=== PATIENT | female | born 1960 | race Caucasian/White ===

== ENCOUNTER 2019-05-22 07:02 | Day surgery (SDC) | payer OTHER ==
[2019-05-12 10:33] VITALS: BMI 44.6
[2019-05-22] MEDS ORDERED: methylPREDNISolone ACET (DEPO) 40 MG/1 ML VIAL ONE (07:20)
[2019-05-22] MEDS ORDERED: EPINEPHrine 1:1,000 1 MG/1 ML - 30ML VIAL (INJECTION) ONE (07:20)
[2019-05-22] MEDS ORDERED: BUPIVACAINE HCL/PF 2.5 MG/ML - 30 ML VIAL IJ ONE (07:20)
[2019-05-22] MEDS ORDERED: fentaNYL CITRATE 250 MCG/5 ML VIAL ONE (07:57)
[2019-05-22] MEDS ORDERED: PROPOFOL 20 ML ONE ×2 (07:57)
[2019-05-22] MEDS ORDERED: SUCCINYLCHOLINE CHLORIDE 200 MG/10 ML SYRINGE ONE ×2 (07:58→09:17)
[2019-05-22] MEDS ORDERED: ROCURONIUM BROMIDE 50 MG/5 ML SYRINGE ONE ×2 (07:58→09:17)
[2019-05-22] MEDS ORDERED: MIDAZOLAM HCL 2 MG/2 ML SINGLE DOSE VIAL ONE (07:58)
[2019-05-22] MEDS ORDERED: DEXAMETHASONE SOD PHOSPHATE 4 MG/1 ML VIAL ONE (08:37)
[2019-05-22] MEDS ORDERED: KETOROLAC TROMETHAMINE 30 MG/1 ML VIAL ONE (08:37)
[2019-05-22] MEDS ORDERED: ceFAZolin SODIUM 1 GM VIAL ONE (08:37)
[2019-05-22] MEDS ORDERED: ONDANSETRON 4 MG/2 ML VIAL ONE (08:37)
[2019-05-22] MEDS ORDERED: LIDOCAINE HCL 2% JELLY (5 ML/TUBE) ONE (08:37)
[2019-05-22] MEDS ORDERED: LIDOCAINE HCL/PF 2% SDV 5ML VIAL ONE (08:37)
[2019-05-22] MEDS ORDERED: NEOSTIGMINE METHYLSULFATE 0.5 MG/ML - 10 ML MDV ONE (09:30)
[2019-05-22] MEDS ORDERED: GLYCOPYRROLATE 0.2 MG/1 ML VIAL ONE (09:32)
--- NOTE | 2019-05-22 09:49 | PN ---
Progress Note (short form) - Note Progress Note: 58F s/p surgical arthroscopy left knee POD #0. -Pain control. -Incentive spirometry. -PT/OT/Rehab if needed. -WBAT LLE. -Crutch training. -Keep dressing clean & dry; remove dressing on Saturday and cover suture sites with water-proof Band-Aid. -Percocet & Naproxen ordered to pharmacy for analgesia. -Discharge home: f/u [facility] [place] [facility] in 1 week; call for appointment: . Esau Bloom MD (Orthopaedic Surgery).
[2019-05-22] MEDS ORDERED: oxyCODONE HCL 5 MG TABLET PO PRN ×2 (09:53)
[2019-05-22] MEDS ORDERED: ONDANSETRON 4 MG/2 ML VIAL IVPUSH PRN (09:53)
[2019-05-22] MEDS ORDERED: PROMETHAZINE HCL 25 MG/1 ML VIAL IVPUSH PRN (09:53)
--- NOTE | 2019-05-22 09:54 | OP ---
Operative Note - Note: Operative Date: 05/22/19 Pre-Operative Diagnosis: Left knee medial meniscus derangement Operation: 1. Surgical arthroscopy left knee. 2. Removal multiple loose bodies left knee Findings: Tourniquet Pressure: 350mmHg Tourniquet Time: 37 minutes Post-Operative Diagnosis: Same as Pre-op Surgeon: Esau Bloom Anesthesiologist/PAINT DIPPER: Faheem Medina Anesthesia: General Specimens Removed: Multiple loose bodies Estimated Blood Loss (mls): 0 Fluid Volume Replaced (mls): 800 (Crystalloid) Operative Report Dictated: Yes
--- NOTE | 2019-05-22 11:12 | OP ---
Date of Operation: 05/22/2019 Surgeon: Esau Bloom MD Nutrition Faculty Member: None Pre-Operative Diagnosis: Left knee lateral meniscus tear Post-Operative Diagnosis: Left knee: 1. Multiple loose bodies left knee 2. Degenerative ACL 3. Synovitis 4. Grade 4 chondromalacia patella 5. Grade 2 chondromalacia medial tibial plateau 6. Grade 2 chondromalacia lateral tibial plateau Surgical Procedure: Left knee: 1. Surgical arthroscopy with removal of loose bodies (44216). 2. Intra-articular (large joint) injection with 10cc 0.25% Marcaine and 2cc depomedrol (40mg/mL). Anesthesia: General, LMA. Position: Supine. Incision: Standard anteromedial & anterolateral knee arthroscopy portals. Tourniquet Pressure: 350mmHg. Tourniquet Time: 37 minutes. Estimated Blood Loss: 0cc. Intravenous Fluid: 750cc crystalloid. Specimens: None. Drains: None. Complications: None. Urine output: None. Bacteriology: None. Transfusions: None. Closure: 3-0 Nylon. Indications: The patient was indicated for a surgical arthroscopy of the left knee with debridement to facilitate improved motion and mobilization, and to prevent complications associated with a sedentary lifestyle. The patient was identified in the holding area by her armband. A long discussion was held with the patient regarding the risks, benefits and alternatives of the above-named procedure. Risks include but are not limited to: pain, bleeding, infection, damage to surrounding structures (including nerves, blood vessels, skin, ligaments, tendons and bone), wound complications, need for further surgery, blood clots, myocardial infarction, pulmonary embolism, anesthesia complications, compartment syndrome, limb loss, limp, loss of function, and . Benefits as mentioned above. Alternatives include no surgery. All questions were answered. The patient and her family understood and agreed to the procedure. Informed consent was obtained, witnessed and verified. The patients correct operative limb - the left lower extremity - was marked, and the patient was taken to the operating room after being seen by the anesthesia and nursing staff. Procedure: The patient was brought into the operating room, placed on the OR table and secured with a safety strap. Consent and the operative site were again verified with the patient and nursing and anesthesia staff. Anesthesia was then administered without complication. 2g IV Ancef were administered. A time out was done led by me, the attending surgeon. The patient was positioned with bony prominences well padded, and a tourniquet was placed proximally on the left thigh and set to 350mmHg. The operative limb was prepped in standard sterile fashion using betadine prep & scrub, wiped off with alcohol, and then DuraPrep applied. The operative limb was then free draped. Time out was again done, the limb was exsanguinated using an Esmarch, the tourniquet was inflated, and the case began. Surface anatomy of the knee was drawn, marking the patella, patellar tendon, and medial & lateral joint lines. With the knee flexed to 45 degrees, a standard anterolateral arthroscopy portal was made using an 11 blade. A blunt trocar was then inserted into the knee at the same angle as the incision. The blunt trocar was then slipped into the suprapatellar pouch as the knee was slowly extended. The trocar was removed through its overlying canula, and the arthroscope was inserted in its place. The fluid inflow, which had already been primed, was then attached to the canula along with the outflow suction tubing. The knee was then insufflated with normal saline solution. The suprapatellar pouch was then inspected with evidence of diffuse synovitis. Multiple loose bodies/chondral fragments were seen. The retro-patellar surface revealed Grade 4 chondromalacia and the trochlear groove appeared healthy. The patellofemoral articulation appeared congruous. Next, the arthroscope was delivered into the medial gutter of the knee as the knee was slowly flexed. Again, multiple loose bodies were seen. With gentle valgus force applied to the knee, the arthroscope was slipped into the medial compartment. The cartilage of the medial femoral condyle and appeared healthy with no chondromalacia. The cartilage of the medial tibial plateau revealed grade 2 chondromalacia. The medial meniscus appeared intact. Next, an 18-gauge spinal needle was used to plan an anteromedial portal. With the correct position and working trajectory verified, the spinal needle was removed, and an 11 blade was utilized to create a standard anteromedial arthroscopy portal. A blunt trocar was then inserted via the anteromedial portal into the medial compartment of the knee under direct arthroscopic visualization via the anterolateral portal. A probe was inserted via the anteromedial portal demonstrating the stability of the medial meniscus, as well as to inspect the superior and inferior surfaces of the medial meniscus. No meniscus derangement was identified. Next, the arthroscope was delivered into the intercondylar notch. The ACL was visualized and appeared hyperemic and degenerative. A motorized 3.5mm shaver was then inserted via the anteromedial portal and redundant, loose flaps of synovial tissue was gently trimmed back to a stable base. Numerous loose bodies were removed via mechanical debridement and suction, as well. The probe was used to demonstrate the ACLs stability. The PCL was not visualized. Gentle varus stress was applied to the knee as the arthroscope was delivered into the lateral compartment of the knee. The cartilage of the lateral femoral condyle and appeared healthy with no chondromalacia. The cartilage of the lateral tibial plateau revealed grade 2 chondromalacia. The lateral meniscus appeared intact. A probe was used to demonstrate the stability of the lateral meniscus, as well as to inspect the superior and inferior surfaces of the lateral meniscus. No meniscus derangement was identified. The arthroscope was then delivered into the lateral gutter of the knee where, again, loose bodies were seen. The arthroscope was then returned to the suprapatellar pouch as the knee was gently extended. The knee was irrigated with 2-3L of normal saline solution and the motorized shaver was used to debride and remove all loose bodies. All fluid was suctioned out of the knee. An intra-articular injection consisting of 10mL of 0.25% Marcaine with 2mL of Depo-Medrol (40 mg/mL) was injected into the knee. Hemostasis was assured, and the incisions were closed primarily using 3-0 nylon sutures. Xeroform and a sterile, compressive dressing was applied. The tourniquet was released at a final time of 37 minutes. The sponge and needle counts were correct at the end of the case and I the attending was present and scrubbed throughout the case. The patient was then transferred to the recovery room in stable condition, as per the anesthesiology team, having tolerated the procedure well. Intra-operative photographs were captured using the arthroscope at numerous steps throughout the case. MD DOMENICO Orantes/[id number] JE
[2019-05-22] MEDS ORDERED: oxyCODONE HCL 5 MG TABLET ONE (11:30)
[2019-05-22 11:47] VITALS: BP 145/71; PULSE 78; TEMP 98
== END 2019-05-22 12:05 | disposition home or self-care (01) ==
LOC: FASU 07:02
PROVIDERS: ATTEND Orthopaedic Surgery Adult Reconstructive Orthopaedic Surgery
PROC: 3E0U33Z Introduction of Anti-inflammatory into Joints, Percutaneous Approach (ICD-10-PCS; 2019-05-22)
PROC: 0SCD4ZZ Extirpation of Matter from Left Knee Joint, Percutaneous Endoscopic Approach (ICD-10-PCS; principal; 2019-05-22 09:00)
DX: M23.42 Loose body in knee, left knee (principal); M23.612 Other spontaneous disruption of anterior cruciate ligament of left knee; M65.9 Synovitis and tenosynovitis, unspecified; M22.42 Chondromalacia patellae, left knee; E78.5 Hyperlipidemia, unspecified; E66.01 Morbid (severe) obesity due to excess calories; Z68.41 Body mass index [BMI] 40.0-44.9, adult; Z90.710 Acquired absence of both cervix and uterus
CPT/HCPCS: 94760

== ENCOUNTER 2023-01-23 08:00 | Inpatient (IN) | payer OTHER ==
[2023-02-06 09:05] VITALS: BMI 48.0
[2023-02-06] MEDS ORDERED: MIDAZOLAM HCL 2 MG/2 ML SINGLE DOSE VIAL ONE ×9 (10:09→15:13)
[2023-02-06] MEDS ORDERED: VANCOMYCIN 1,000 MG VIAL (RESTRICTED TO ID ONLY) ONE (11:02)
[2023-02-06] MEDS ORDERED: ceFAZolin SODIUM 1 GM VIAL ONE ×3 (11:02→16:23)
[2023-02-06] MEDS ORDERED: BUPIVACAINE LIPOSOME/PF (EXPAREL) 266 MG/20 ML VIAL ONE (11:58)
[2023-02-06] MEDS ORDERED: BUPIVACAINE HCL/PF 0.5% (5MG/ML) 10 ML VIAL ONE (11:59)
[2023-02-06] MEDS ORDERED: BUPIVACAINE HCL/PF 2.5 MG/ML - 30 ML VIAL IJ ONE (11:59)
[2023-02-06] MEDS ORDERED: TRANEXAMIC ACID 1000 MG/10 ML VIAL ONE (12:49)
[2023-02-06] MEDS ORDERED: ACETAMINOPHEN INJECTION 100 ML IVPB ONE ×2 (13:11→15:24)
[2023-02-06] MEDS ORDERED: PROPOFOL 20 ML ONE ×2 (15:04→16:02)
[2023-02-06] MEDS ORDERED: PROPOFOL 40 ML ONE (15:17)
[2023-02-06] MEDS ORDERED: KETOROLAC TROMETHAMINE 30 MG/1 ML VIAL ONE (15:24)
[2023-02-06] MEDS ORDERED: MAGNESIUM HYDROX 2400MG/30ML ORAL SUSPENSION 30 ML CUP PO PRN (17:09)
[2023-02-06] MEDS ORDERED: MAG HYDROX/AL HYDROX/SIMETH 30 ML UNIT-DOSE CUP PO PRN (17:09)
[2023-02-06] MEDS ORDERED: ONDANSETRON 4 MG/2 ML VIAL IVPUSH PRN ×2 (17:09→17:30)
[2023-02-06] MEDS ORDERED: LACTATED RINGERS SOLUTION 1,000 ML IV SCH (17:15)
[2023-02-06] MEDS: KETOROLAC TROMETHAMINE 30 MG/1 ML VIAL IVPUSH SCH ×2 (17:23→22:56)
[2023-02-06] MEDS ORDERED: FENTANYL CITRATE/PF 50 MCG/ML VIAL ONE ×2 (17:23→17:35)
[2023-02-06] MEDS ORDERED: ACETAMINOPHEN 500 MG TABLET (FP) PO SCH (18:00)
[2023-02-06] MEDS: CEFAZOLIN 3 GM in DEXTROSE 5%-WATER - 100 ML IVPB SCH (19:17)
[2023-02-06] MEDS: oxyCODONE HCL 5 MG TABLET PO PRN (19:17)
[2023-02-06] MEDS: ACETAMINOPHEN 500 MG TABLET (FP) PO SCH (21:22)
[2023-02-06] MEDS: CELECOXIB 200 MG CAPSULE PO SCH (21:22)
[2023-02-06] MEDS: GABAPENTIN 300 MG CAPSULE PO SCH (21:22)
[2023-02-06] MEDS: ASPIRIN COATED 81 MG TABLET.EC PO SCH (21:25)
[2023-02-06] MEDS: SENNOSIDES/DOCUSATE COMBO (SENNA PLUS) TABLET (UD) PO SCH (21:28)
[2023-02-06] MEDS: oxyCODONE HCL 10 MG SUSTAINED ACTING TABLET PO SCH (21:28)
[2023-02-06] MEDS: BACITRACIN ZINC 15 GM TUBE TOPICAL OINTMENT TP SCH (22:56)
[2023-02-07] MEDS: CEFAZOLIN 3 GM in DEXTROSE 5%-WATER - 100 ML IVPB SCH ×2 (02:00→07:43)
[2023-02-07] MEDS: ACETAMINOPHEN 500 MG TABLET (FP) PO SCH ×4 (03:03→21:14)
[2023-02-07] MEDS: LACTATED RINGERS SOLUTION 1,000 ML IV SCH ×2 (05:02→17:50)
[2023-02-07 08:19] LABS: HEMATOCRIT 29.9 % (32.4-45.2); HEMOGLOBIN 9.7 G/dL (10.7-15.3); MCH 29.3 pg (25.7-33.7); MCHC 32.3 g/dl (32.0-36.0); MEAN PLT VOLUME 9.2 fl (7.5-11.1); PLATELET COUNT 183.1 10^3/uL (134-434); RBC 3.29 10^6/uL (3.60-5.2); RDW 14.6 % (11.6-15.6); WHITE BLOOD COUNT 8.1 10^3/uL (4.0-10.8)
[2023-02-07 08:20] LABS: CREATININE 0.7 mg/dl (0.55-1.3); POTASSIUM 3.6 mmol/L (3.5-5.1)
[2023-02-07] MEDS: GABAPENTIN 300 MG CAPSULE PO SCH ×2 (09:04→21:15)
[2023-02-07] MEDS: metoPROLOL SUCCINATE 25 MG TAB.SR.24H (FP) PO SCH (09:05)
[2023-02-07] MEDS: SENNOSIDES/DOCUSATE COMBO (SENNA PLUS) TABLET (UD) PO SCH ×2 (09:05→21:24)
[2023-02-07] MEDS: PANTOPRAZOLE 40 MG TABLET PO SCH (09:05)
[2023-02-07] MEDS: CELECOXIB 200 MG CAPSULE PO SCH ×2 (09:05→21:15)
[2023-02-07] MEDS: BACITRACIN ZINC 15 GM TUBE TOPICAL OINTMENT TP SCH ×2 (09:05→21:15)
[2023-02-07] MEDS: ASPIRIN COATED 81 MG TABLET.EC PO SCH ×2 (09:05→21:15)
[2023-02-07] MEDS: oxyCODONE HCL 10 MG SUSTAINED ACTING TABLET PO SCH ×2 (09:06→21:15)
[2023-02-07] MEDS: oxyCODONE HCL 5 MG TABLET PO PRN ×3 (12:46→21:25)
[2023-02-08] MEDS: ACETAMINOPHEN 500 MG TABLET (FP) PO SCH ×4 (02:41→21:15)
[2023-02-08] MEDS: oxyCODONE HCL 5 MG TABLET PO PRN ×3 (06:42→21:17)
[2023-02-08 08:31] LABS: HEMATOCRIT 28.2 % (32.4-45.2); MCH 28.8 pg (25.7-33.7); MEAN CELL VOLUME 90.2 fl (80-96); MEAN PLT VOLUME 9.1 fl (7.5-11.1); PLATELET COUNT 173.2 10^3/uL (134-434); RBC 3.13 10^6/uL (3.60-5.2); RDW 14.3 % (11.6-15.6)
[2023-02-08] MEDS: GABAPENTIN 300 MG CAPSULE PO SCH ×2 (09:06→21:16)
[2023-02-08] MEDS: oxyCODONE HCL 10 MG SUSTAINED ACTING TABLET PO SCH ×2 (09:06→21:16)
[2023-02-08] MEDS: SENNOSIDES/DOCUSATE COMBO (SENNA PLUS) TABLET (UD) PO SCH ×2 (09:06→21:17)
[2023-02-08] MEDS: ASPIRIN COATED 81 MG TABLET.EC PO SCH ×2 (09:06→21:16)
[2023-02-08] MEDS: metoPROLOL SUCCINATE 25 MG TAB.SR.24H (FP) PO SCH (09:07)
[2023-02-08] MEDS: PANTOPRAZOLE 40 MG TABLET PO SCH (09:07)
[2023-02-08] MEDS: CELECOXIB 200 MG CAPSULE PO SCH ×2 (09:08→21:16)
[2023-02-08] MEDS: BACITRACIN ZINC 15 GM TUBE TOPICAL OINTMENT TP SCH ×2 (09:09→21:16)
[2023-02-08 09:13] VITALS: RESP 18
[2023-02-08] MEDS: LACTATED RINGERS SOLUTION 1,000 ML IV SCH (17:58)
[2023-02-09] MEDS: ACETAMINOPHEN 500 MG TABLET (FP) PO SCH ×4 (04:31→21:49)
[2023-02-09] MEDS: oxyCODONE HCL 5 MG TABLET PO PRN (06:28)
[2023-02-09] MEDS: oxyCODONE HCL 10 MG SUSTAINED ACTING TABLET PO SCH ×2 (09:18→21:49)
[2023-02-09] MEDS: SENNOSIDES/DOCUSATE COMBO (SENNA PLUS) TABLET (UD) PO SCH ×2 (09:18→21:50)
[2023-02-09] MEDS: GABAPENTIN 300 MG CAPSULE PO SCH (09:18)
[2023-02-09] MEDS: ASPIRIN COATED 81 MG TABLET.EC PO SCH ×2 (09:18→21:50)
[2023-02-09] MEDS: PANTOPRAZOLE 40 MG TABLET PO SCH (09:18)
[2023-02-09] MEDS: CELECOXIB 200 MG CAPSULE PO SCH ×2 (09:19→21:50)
[2023-02-09] MEDS: BACITRACIN ZINC 15 GM TUBE TOPICAL OINTMENT TP SCH ×2 (09:20→21:52)
[2023-02-09] MEDS: metoPROLOL SUCCINATE 25 MG TAB.SR.24H (FP) PO SCH (09:22)
[2023-02-09 10:49] LABS: HEMATOCRIT 28.5 % (32.4-45.2); HEMOGLOBIN 9.2 G/dL (10.7-15.3); MCH 29.7 pg (25.7-33.7); MCHC 32.3 g/dl (32.0-36.0); MEAN CELL VOLUME 91.8 fl (80-96); MEAN PLT VOLUME 8.8 fl (7.5-11.1); PLATELET COUNT 176.1 10^3/uL (134-434); RDW 14.5 % (11.6-15.6); WHITE BLOOD COUNT 8.4 10^3/uL (4.0-10.8)
[2023-02-09] MEDS: LACTATED RINGERS SOLUTION 1,000 ML IV SCH (17:53)
[2023-02-09] MEDS ORDERED: oxyCODONE HCL 5 MG TABLET PO PRN ×2 (17:57→17:58)
[2023-02-10] MEDS: ACETAMINOPHEN 500 MG TABLET (FP) PO SCH ×2 (06:45→09:20)
[2023-02-10] MEDS: metoPROLOL SUCCINATE 25 MG TAB.SR.24H (FP) PO SCH (09:19)
[2023-02-10] MEDS: ASPIRIN COATED 81 MG TABLET.EC PO SCH (09:21)
[2023-02-10] MEDS: CELECOXIB 200 MG CAPSULE PO SCH (09:21)
[2023-02-10] MEDS: PANTOPRAZOLE 40 MG TABLET PO SCH (09:21)
[2023-02-10] MEDS: SENNOSIDES/DOCUSATE COMBO (SENNA PLUS) TABLET (UD) PO SCH (09:22)
[2023-02-10] MEDS: oxyCODONE HCL 10 MG SUSTAINED ACTING TABLET PO SCH ×2 (09:22→10:16)
[2023-02-10] MEDS: BACITRACIN ZINC 15 GM TUBE TOPICAL OINTMENT TP SCH (09:23)
[2023-02-10 12:49] VITALS: BP 126/58; PULSE 78; TEMP 97.8
== END 2023-02-10 14:55 | disposition home or self-care (01) | DRG 302 ==
LOC: FM/S 02-06 08:25
PROVIDERS: ADMIT Orthopaedic Surgery Adult Reconstructive Orthopaedic Surgery; ATTEND Orthopaedic Surgery Adult Reconstructive Orthopaedic Surgery
PROC: 0SRD0J9 Replacement of Left Knee Joint with Synthetic Substitute, Cemented, Open Approach (ICD-10-PCS; principal; 2023-02-06 13:12)
DX: M17.12 Unilateral primary osteoarthritis, left knee (principal); I10 Essential (primary) hypertension; E78.5 Hyperlipidemia, unspecified; M32.9 Systemic lupus erythematosus, unspecified; M17.32 Unilateral post-traumatic osteoarthritis, left knee; E66.01 Morbid (severe) obesity due to excess calories; Z68.42 Body mass index [BMI] 45.0-49.9, adult
CPT/HCPCS: 36415; 73560-TC-LT-FY; 80048; 85027; 88305-TC; 88311-TC; 94760; 97010-GP; 97116-GP; 97162-GP; C1713; C1776; C1889